=== PATIENT | female | born 1960 | race Caucasian/White ===

== ENCOUNTER 2017-02-07 05:56 | Inpatient (IN) | payer OTHER ==
[2017-02-04 17:53] VITALS: BMI 32.6
[~2017-02-07] VITALS: Ht 157.5 cm; Wt 80.7 kg
[2017-02-07] VITALS (23 sets, daily range): BP systolic 94–147; BP diastolic 49–74; PULSE 52–84; RESP 12–19; Ht 157.5 cm; Wt 80.7 kg
[2017-02-07] MEDS ORDERED: DESFLURANE 15 MIN ONE (07:00)
[2017-02-07] MEDS ORDERED: DENO60DI SQ (07:31)
[2017-02-07] MEDS ORDERED: BIOT25004 PO (07:31)
[2017-02-07] MEDS ORDERED: OMEP40CA6 PO (07:31)
[2017-02-07] MEDS ORDERED: LETR2.5T PO (07:31)
[2017-02-07] MEDS ORDERED: CALC600T5 PO (07:31)
[2017-02-07] MEDS ORDERED: LOSA50TA6 PO (07:31)
--- NOTE | 2017-02-07 07:42 | HPN ---
Date/Time of Note Date/Time of Note DATE: 02/07/17 TIME: 07:42 Interval H&P Admission Note Pt. seen H&P reviewed: No system changes RAMO HERRERA MD Feb 07, 2017 07:42
[2017-02-07] MEDS ORDERED: morphine SULFATE/PF (10 MG/10 ML) INJ ONE (07:45)
[2017-02-07] MEDS ORDERED: PHENYLephrine (100 MCG/ML) 5ML SYG ONE (08:01)
--- NOTE | 2017-02-07 08:04 | HP ---
Date/Time of Note Date/Time of Note DATE: 02/07/17 TIME: 07:49 Assessment/Plan VTE Prophylaxis VTE Prophylaxis Intervention: ambulation, anti-embolic stocking Lines/Catheters IV Catheter Type (from Nrsg): Peripheral IV Assessment/Plan Assessment/Plan pelvic pain uterine fibroids plan JUN poss BSO HPI/ROS Admit Date/Time Admit Date/Time Feb 07, 2017 at 05:56 Hx of Present Illness [id number] was amitted for JUN poss BSO for uterine fibroids which was discovered by U/S done early this year,at that time she was having vaginal bleeding. also she has been suffering from severe pelvic pain for the last 2mo which isprogressively gotten worsen. patient requested for surgical intervention. ROS severe pelvic pain Constitutional: improved, no complaints Gastrointestinal: pain Genitourinary: bleeding PMH/Family/Social Past Medical History med; [id number], [id number] letrozole, prolia injectio biotin calcium allergy ; ibuprofen,, penicillin Medical History: hypertension Past Surgical History Past Surgical Hx: other (rt mastectomy, tummy tuck tubal ligation) Social History Alcohol Use: none Smoking Status: Never smoker Drug Use: none Exam/Review of Systems Vital Signs Vitals Vital Signs Date Time Temp Pulse Resp B/P Pulse Ox O2 Delivery O2 Flow Rate FiO2 02/07/17 07:22 97.9 62 18 147/74 98 Room Air Exam Exam uterus enlarged 11-12w size breast s/p rt mastectomy Constitutional: alert, oriented, well developed Psych: nl mood/affect, no complaints Head: atraumatic, normocephalic Eyes: EOMI, PERRL, nl conjunctiva, nl lids, nl sclera ENMT: nl external ears & nose, nl lips & teeth, nl nasal mucosa & septum Neck: non-tender, supple Respiratory: clear to auscultation, normal air movement Cardiovascular: nl pulses, regular rate and rhythm Gastrointestinal: nl liver, spleen, non-tender, soft Genitourinary - Female: No CMT, No CVA tenderness, No other Musculoskeletal: nl extremities to inspection Extremities: normal pulses Neurological: PARTS FACILITATOR II-XII intact, nl mental status, nl speech, nl strength Skin: nl turgor, No rash or lesions Lymph: nl lymph nodes RAMO HERRERA MD Feb 07, 2017 08:01
[2017-02-07] MEDS ORDERED: PROPOFOL 20 ML ONE (08:10)
[2017-02-07] MEDS ORDERED: ROCURONIUM 50 MG INJ ONE (08:10)
[2017-02-07] MEDS ORDERED: LIDOCAINE 2% (SDV) 5 ML INJ ONE (08:10)
[2017-02-07] MEDS ORDERED: SUCCINYLCHOLINE CHLORIDE 100 MG/5 ML SYG IV ONE (08:10)
[2017-02-07] MEDS ORDERED: CLINDAMYCIN 900 MG/D5W (PMX) 50 ML IVPB ONE (08:10)
[2017-02-07] MEDS ORDERED: FENTAnyl 50 MCG/ML VIAL IV PRN (08:30)
[2017-02-07] MEDS ORDERED: METOCLOPRAMIDE 10 MG INJ IV PRN (08:30)
[2017-02-07] MEDS ORDERED: ONDANSETRON 4 MG INJ IV PRN ×2 (08:30→17:30)
[2017-02-07] MEDS ORDERED: DIPHENHYDRAMINE 50 MG INJ IV PRN (08:30)
[2017-02-07] MEDS ORDERED: HYDROmorphONE (0.2 MG/ML) 10ML SYG IV PRN ×2 (08:30)
[2017-02-07] MEDS ORDERED: MEPERIDINE 25 MG INJ IV PRN (08:30)
[2017-02-07] MEDS ORDERED: ALBUTEROL 0.083% (NEB) 2.5 MG/3 ML AMP HHN PRN (08:30)
[2017-02-07] MEDS ORDERED: LACTATED RINGER'S 1,000 ML IV* ONE (09:00)
[2017-02-07] MEDS ORDERED: SUGAMMADEX SODIUM 200 MG/2 ML VIAL IV ONE (09:53)
[2017-02-07] MEDS: FENTAnyl 50 MCG/ML VIAL IV PRN ×4 (10:35→11:20)
--- NOTE | 2017-02-07 10:39 | OPR ---
Date/Time of Note Date/Time of Note DATE: 02/07/17 TIME: 10:37 Operative Report Preoperative Diagnosis uterine fibroids severe pelvic pain Postoperative Diagnosis see path report Operation/Procedure Performed JUN BSO Surgeon: RAMO HERRERA MD lpn or medical assistant: DAVY FUNES MD Anesthesia: general Estimated Blood Loss: 100 - 150 ml's Specimens uterus ovaries and tubes Complications: None RAMO HERRERA MD Feb 07, 2017 10:38
[2017-02-07] MEDS: HYDROmorphONE 1 MG/ML SYG IV PRN (17:41)
[2017-02-07] MEDS: LACTATED RINGER'S 1,000 ML IV SCH (20:16)
[2017-02-07] MEDS: LETROZOLE 2.5 MG TAB PO SCH (21:00)
[2017-02-08 01:34] VITALS: BP 130/64; RESP 18
[2017-02-08] MEDS: LACTATED RINGER'S 1,000 ML IV SCH ×2 (04:17→10:59)
[2017-02-08 05:34] LABS: BASOPHIL # 0.1 10^3/ul (0.0-0.1); BASOPHILS % 0.5 % (0.0-2.0); EOSINOPHILS % 0.3 % (0.0-7.0); HEMATOCRIT 32.8 % (37.0-47.0); HEMOGLOBIN 10.4 g/dl (12.0-16.0); LYMPHOCYTES # 1.4 10^3/ul (0.8-2.9); LYMPHOCYTES % 12.9 % (15.0-51.0); MEAN CORPUSCULAR HEMOGLOBIN 26.5 pg (29.0-33.0); MEAN CORPUSCULAR HGB CONC 31.7 g/dl (32.0-37.0); MEAN CORPUSCULAR VOLUME 83.7 fl (82.0-101.0); MEAN PLATELET VOLUME 11.5 fl (7.4-10.4); MONOCYTE # 0.6 10^3/ul (0.3-0.9); MONOCYTES % 5.7 % (0.0-11.0); NEUTROPHIL # 8.8 10^3/ul (1.6-7.5); NEUTROPHILS % 80.3 % (39.0-77.0); PLATELET COUNT 199 10^3/UL (140-415); RED BLOOD COUNT 3.92 10^6/ul (4.20-5.40); RED CELL DISTRIBUTION WIDTH 15.5 % (11.5-14.5)
[2017-02-08 05:45] VITALS: BP 120/59; PULSE 65; RESP 20
[2017-02-08] MEDS: HYDROmorphONE 1 MG/ML SYG IV PRN (05:47)
[2017-02-08] MEDS ORDERED: PANTOPRAZOLE 40 MG INJ IV SCH (06:00)
[2017-02-08 06:13] LABS: ALBUMIN 3.6 g/dl (3.3-4.9); ALBUMIN/GLOBULIN RATIO 1.38; BILIRUBIN,INDIRECT 0.5 mg/dl (0-1.1); BILIRUBIN,TOTAL 0.5 mg/dl (0.2-1.3); CALCIUM 8.5 mg/dl (8.4-10.2); CREATININE 0.62 mg/dl (0.44-1.00); POTASSIUM 3.7 mmol/L (3.5-5.1); TOTAL PROTEIN 6.2 g/dl (6.1-8.1)
[2017-02-08 08:22] VITALS: BP 126/61; RESP 20
[2017-02-08] MEDS: LOSARTAN 50 MG TAB PO SCH (09:12)
[2017-02-08] MEDS: LETROZOLE 2.5 MG TAB PO SCH (09:20)
--- NOTE | 2017-02-08 10:42 | PN ---
Date/Time of Note Date/Time of Note DATE: 02/08/17 TIME: 10:39 Assessment/Plan Lines/Catheters IV Catheter Type (from Nrsg): Peripheral IV Rios in Place (from Nrsg): Yes Subjective 24 Hr Interval Summary S; flatus pos no c/o exept incisional pain O vss afebrile abdomen soft wound dry no significant vaginal bleeding calf neg for tendernes A stable post JUN BSO P as ordered Exam/Review of Systems Vital Signs Vitals Vital Signs Date Time Temp Pulse Resp B/P Pulse Ox O2 Delivery O2 Flow Rate FiO2 02/08/17 08:22 99.2 66 20 126/61 98 02/08/17 05:45 Nasal Cannula 2.0 Intake and Output 02/07/17 02/07/17 02/08/17 15:00 23:00 07:00 Intake Total 1600 ml 1120 ml 1125 ml Output Total 850 ml 500 ml 1300 ml Balance 750 ml 620 ml -175 ml Results Result Diagram: 02/08/17 0428 02/08/17 0428 RAMO HERRERA MD Feb 08, 2017 10:42
[2017-02-08] MEDS: OXYCODONE/ACETAMINOPHEN (5/325) TAB PO PRN ×2 (11:01→19:43)
[2017-02-08 12:05] LABS: ADD UMIC YES; UR ASCORBIC ACID NEGATIVE (NEGATIVE); UR BACTERIA FEW /HPF (NONE SEEN); UR BILIRUBIN (Dip) NEGATIVE (NEGATIVE); UR BLOOD (Dip) 1+ mg/dL (NEGATIVE); UR CLARITY CLEAR (CLEAR); UR COLOR YELLOW (YELLOW); UR GLUCOSE (Dip) NEGATIVE (NEGATIVE); UR KETONES (Dip) 1+ mg/dL (NEGATIVE); UR LEUKOCYTE ESTERASE (Dip) NEGATIVE Leu/ul (NEGATIVE); UR NITRITE (Dip) NEGATIVE (NEGATIVE); UR RBC 4 /HPF (0-5); UR SPECIFIC GRAVITY (Dip) 1.014 (1.003-1.030); UR TOTAL PROTEIN (Dip) NEGATIVE (NEGATIVE); UR UROBILINOGEN (Dip) NEGATIVE (NEGATIVE)
[2017-02-08 14:00] VITALS: BP 114/55; RESP 20
[2017-02-08 20:00] VITALS: BP 157/69; PULSE 85; RESP 17
[2017-02-08 22:04] VITALS: BP 113/64; PULSE 68; RESP 17
[2017-02-09 02:49] VITALS: BP 138/66; RESP 20
[2017-02-09] MEDS: OXYCODONE/ACETAMINOPHEN (5/325) TAB PO PRN ×3 (04:28→16:12)
[2017-02-09] MEDS: PANTOPRAZOLE (EC) 40 MG TAB PO SCH (05:27)
[2017-02-09 08:20] VITALS: BP 115/71; RESP 18
[2017-02-09] MEDS: LOSARTAN 50 MG TAB PO SCH (09:09)
[2017-02-09] MEDS: LETROZOLE 2.5 MG TAB PO SCH (09:11)
--- NOTE | 2017-02-09 16:54 | PN ---
Date/Time of Note Date/Time of Note DATE: 02/09/17 TIME: 16:52 Assessment/Plan Lines/Catheters IV Catheter Type (from Nrsg): Saline Lock Rios in Place (from Nrsg): No Subjective 24 Hr Interval Summary s; feels better no nausea or vomit flatus only o vss afebrile abdomen soft wound dry calf neg A stable P discharge home in am Exam/Review of Systems Vital Signs Vitals Vital Signs Date Time Temp Pulse Resp B/P Pulse Ox O2 Delivery O2 Flow Rate FiO2 02/09/17 08:20 97.9 74 18 115/71 98 02/08/17 22:04 Room Air 02/08/17 05:45 2.0 Intake and Output 02/08/17 02/08/17 02/09/17 15:00 23:00 07:00 Intake Total 350 ml 480 ml Balance 350 ml 480 ml Results Result Diagram: 02/08/17 0428 02/08/17 0428 RAMO HERRERA MD Feb 09, 2017 16:54
[2017-02-09 21:22] VITALS: BP 121/66; RESP 20
[2017-02-10] MEDS: OXYCODONE/ACETAMINOPHEN (5/325) TAB PO PRN ×2 (00:04→09:00)
[2017-02-10 02:38] VITALS: BP 102/58; RESP 18
--- NOTE | 2017-02-10 05:17 | OPR ---
DATE OF OPERATION: 02/07/2017 PREOPERATIVE DIAGNOSES: 1. Uterine fibroids. 2. Pelvic pain. POSTOPERATIVE DIAGNOSIS: See pathological report. OPERATION PERFORMED: Total abdominal hysterectomy, bilateral salpingo-oophorectomy. SURGEON: Paula Nolasco MD [employer] OFFICER: Dr. June ESTIMATED BLOOD LOSS: Approximately 150 mL. OPERATIVE PROCEDURE: Under appropriate induction of general anesthesia, the patient was placed on the frog leg position. Rios catheter was introduced into the bladder under sterile condition, repositioned to supine. Abdominal wall was prepped and draped in usual aseptic manner. A transverse incision was made along the previous incisional scar. Scar tissue was excised. The incision was carried down through the subcutaneous tissue to the anterior rectus fascia which was incised transversely the length of the incision. Fascial flap was created by blunt and sharp dissection of tendinous attachment upward and downward until rectus muscles split in the midline. The peritoneal cavity was entered. The patient was placed in Trendelenburg position. Pelvic organ was explored. The uterus felt to be approximately 10 weeks of gestational size, firm in consistency with somewhat irregular on the surface and both ovaries felt to be normal. Tubes were cut from the previous tubal sterilization and one of the clips was left on the right side. retractor was introduced into the abdominal cavity and the bowel was packed away from the operative field. Lesli forceps was placed on the fundus and both cornua was held with Pean forceps. The left round ligament was clamped and cut, ligated with number 0 chromic catgut suture, left long, and the anterior leaf of the broad ligament was incised inferiorly medially toward the cervical fold toward the midline and so half of the bladder flap was created and then broad ligament was windowed and the uterovaginal ligament, fallopian tube, proximal portion of uterovaginal ligament, fallopian tube was clamped and cut, and ligated with number 1 chromic catgut. The same procedure was done on the right round ligament and clamped and cut, ligated with number 1 chromic catgut and suture was left long and then the anterior leaf of the broad ligament was incised inferiorly medially toward the midline and half of the bladder flap was created. The broad ligament was opened, made a window and the proximal portion of the uterovaginal ligament examined and fallopian tube was clamped and cut, and ligated with number 1 chromic. The bladder was pushed down from the cervix and the uterine vessel was skeletonized, and this was clamped and cut, transfixed with number 1 chromic catgut on each side. Further separation of the bladder from the cervix obtained, and the cardinal ligament on each side was clamped and cut, ligated with number 1 chromic catgut. The uterosacral ligament on each side was clamped and cut, ligated with number 1 chromic gut, stitch was left long. The fundus was removed from the cervix and the cervix was held. The rest of the cardinal ligament was clamped, cut, and ligated with number 1 chromic catgut until reached the cervical vaginal fold. The vaginal cavity was entered anteriorly and through this opening was introduced, entire cervix was removed from the vagina. The vaginal vault was clamped and with the multiple Kochers and the angle ligator was placed on each angle starting from the anterior vaginal wall and the uterosacral ligament and cardinal ligament and the posterior vaginal wall suture was left long. The same procedure was done on the other corner with the same, using number 1 chromic catgut anterior vaginal wall and the cardinal and uterosacral ligaments and posterior vaginal wall and the suture was left long. The rest of the vaginal vault was closed with a [id number] suture using number 1 chromic catgut and the bleeder controlled properly. The right ovary and the fallopian tube was removed from the infundibulopelvic ligament which was doubly ligated with number 1 chromic catgut, and the specimen was removed and the pedicle was ligated with number 1 chromic catgut and doubly ligated with number 1 chromic catgut. The same procedure was done on the left adnexa, which was also clamped and cut, removed from the infundibulopelvic ligament and doubly ligated with number 1 chromic catgut. No bleeding was noted. Surgicel was introduced under the bladder flap and the Interceed was on top after the irrigation done. All the instrument and sponge count was done. The instruments were removed. The sponge count was removed and the sponge count was done, which was correct. closed using 0 chromic catgut in continuous manner. The muscle closed with 0 chromic catgut in continuous manner. Fascia closed with number 1 Vicryl in continuous manner in 2 segments. Subcutaneous tissue irrigated with water. This layer was approximated with 2-0 plain in continuous manner. Skin closed with EnSeal. Pressure dressing applied. Estimated blood loss approximately 150 mL. The patient withstood the procedure well, sent to recovery room in stable condition. The urine output is more than 500 mL. Dictated By: Paula Nolasco MD /markel/felicia /Document#: [id number]
[2017-02-10] MEDS: PANTOPRAZOLE (EC) 40 MG TAB PO SCH (06:14)
[2017-02-10 08:00] VITALS: BP 126/61; RESP 18
[2017-02-10] MEDS: LETROZOLE 2.5 MG TAB PO SCH (08:55)
[2017-02-10] MEDS: LOSARTAN 50 MG TAB PO SCH (08:55)
[2017-02-10] MEDS ORDERED: BISACODYL 10 MG SUPP PR ONE (13:00)
[2017-02-10 14:00] VITALS: BP 109/61; RESP 18
--- NOTE | 2017-02-10 19:42 | PD.PPDC ---
[facility] [employer] Discharge Instruction Diagnosis Final Diagnosis: uterine fibroids pelvic pain Condition Patient Condition: Stable Diet Diet: Resume Regular Diet Activity/Restrictions Activity: May Shower Restrictions: No Exercising No Lifting Minimize Stair-climbing No Sexual Activity Nothing in the Vagina No Bertram No Tampons, douche Wound/Drain Care Instructions Wound/Drain Care Instructions: Wash with soap and water Keep clean and dry Follow-up Follow-up with Physician: 2, Week/Weeks Return to clinic for IMAGING SYSTEM ADMINISTRATOR Instructions: Fever greater than 101 Chills Worsening abdominal pain Excessive Vaginal Bleeding More than 2 pads per hour Unable to tolerate diet RAMO HERRERA MD Feb 10, 2017 19:42
--- NOTE | 2017-02-10 19:47 | DS ---
Date/Time of Note Date/Time of Note DATE: 02/10/17 TIME: 19:44 Discharge Summary Admission/Discharge Info Admit Date/Time Feb 07, 2017 at 05:56 Discharge Date/Time Feb at 2000 Discharge Diagnosis uroman fibroids pelvic pain Patient Condition: Stable Consults none Procedures JUN BSO Hx of Present Illness [id number] was amitted for JUN poss BSO for uterine fibroids which was discovered by U/S done early this year,at that time she was having vaginal bleeding. also she has been suffering from severe pelvic pain for the last 2mo which isprogressively gotten worsen. patient requested for surgical intervention. Hospital Course postop unevenul course had b.m voiding ok Home Meds Reported Medications Calcium Carbonate (CALCIUM) 600 Mg Tablet, 600 MG PO DAILY, TAB 02/07/17 Denosumab (Prolia) 60 Mg/1 Ml Disp.syrin, 60 MG SQ 6 MONTH 02/07/17 Biotin (BIOTIN) 2,500 Mcg Capsule, 5000 MCG PO, CAP 02/07/17 Omeprazole* (Omeprazole*) 40 Mg Capsule.dr, 40 MG PO DAILY, #26 02/07/17 Letrozole* (Letrozole*) 2.5 Mg Tablet, 2.5 MG PO DAILY, #30 02/07/17 Losartan Potassium* (Losartan Potassium*) 50 Mg Tablet, 50 MG PO DAILY , #26 02/07/17 Follow-up Plan 2weeks at office Primary Care Provider Care Physician No Primary Time spent on discharge: < 30 minutes RAMO HERRERA MD Feb 10, 2017 19:47
[2017-02-10 19:55] VITALS: BP 134/69; RESP 18
== END 2017-02-10 20:40 | disposition home or self-care (01) | DRG 743 ==
LOC: REC 05:56 → EDSTATUS 07:30 → MS1 11:45
PROVIDERS: ADMIT Obstetrics & Gynecology; ATTEND Obstetrics & Gynecology
PROC: 0UTC0ZZ Resection of Cervix, Open Approach (ICD-10-PCS; 2017-02-07)
PROC: 0UT70ZZ Resection of Bilateral Fallopian Tubes, Open Approach (ICD-10-PCS; 2017-02-07)
PROC: 0UT20ZZ Resection of Bilateral Ovaries, Open Approach (ICD-10-PCS; 2017-02-07)
PROC: 0UT90ZZ Resection of Uterus, Open Approach (ICD-10-PCS; principal; 2017-02-07 07:30)
DX: D25.9 Leiomyoma of uterus, unspecified (principal); I10 Essential (primary) hypertension; R10.2 Pelvic and perineal pain
CPT/HCPCS: 80053; 81001; 85025; 86850; 86900; 86901; 86920; 87086; 88305; 88341; 88342; C9113; J1170; J1200; J2175; J2274; J2370; J2405; J3010; J7120; J7999